=== PATIENT | male | born 1965 | race African-American/Black ===

== ENCOUNTER 2021-03-24 14:37 | Emergency (ER) | payer OTHER ==
[~2021-03-24] VITALS: Ht 172.7 cm; Wt 100.0 kg
[2021-03-24] MEDS ORDERED: SODIUM CHLORIDE 0.9% 1,000 ML IV ONE ×2 (15:00)
[2021-03-24] MEDS ORDERED: INSULIN REGULAR (HUMULIN R) 300UNITS/3ML VIAL IV ONE ×2 (15:00→15:45)
[2021-03-24 15:08] LABS: BASOPHILS % 0.5 % (0.0-2.0); EOSINOPHILS % 1.9 % (0.0-5.0); HEMATOCRIT. 50.6 % (42.0-52.0); HEMOGLOBIN. 15.4 g/dL (14.0-18.0); MEAN CORPUSCULAR HEMOGLOBIN 21.4 pg (28.0-32.0); MEAN CORPUSCULAR VOLUME 70.2 fL (80.0-94.0); MONOCYTES % 8.7 % (2.0-8.0); NEUTROPHILS % 66.9 % (40.0-76.0); PLATELET 184 x1000/uL (130-400); RED BLOOD CELL COUNT 7.21 mill/uL (4.7-6.1); RED CELL DISTRIBUTION WIDTH 16.1 % (11.6-14.6)
[2021-03-24 15:15] LABS: CHLORIDE 98 mEq/L (98-107)
[2021-03-24 15:25] LABS: BETA HYDROXYBUTYRATE 1.8 mMol/L (0.0-0.3)
[2021-03-24 18:29] LABS: CHLORIDE 108 mEq/L (98-107)
[2021-03-24 19:29] VITALS: BP 111/76
== END 2021-03-24 19:37 | disposition home or self-care (01) ==
LOC: ER 14:37
DX: E11.65 Type 2 diabetes mellitus with hyperglycemia (principal); I49.9 Cardiac arrhythmia, unspecified
CPT/HCPCS: 36415; 80048; 80053; 82010; 82962; 85025; 93005; 96361; 96374; 96376; 99284; J1815

== ENCOUNTER 2022-01-19 02:25 | Emergency (ER) | payer MEDICAID, OTHER ==
[~2022-01-19] VITALS: Ht 177.8 cm; Wt 80.0 kg
[2022-01-19] MEDS ORDERED: ASPIRIN 81MG TABLET PO ONE (02:45)
[2022-01-19] MEDS ORDERED: NITROGLYCERIN 0.4MG TABLET SL SL PRN (02:45)
[2022-01-19 03:09] LABS: BASOPHILS % 1.3 % (0.0-2.0); EOSINOPHILS % 3.2 % (0.0-5.0); HEMATOCRIT. 42.2 % (42.0-52.0); HEMOGLOBIN. 13.3 g/dL (14.0-18.0); LYMPHOCYTES % 27.2 % (20.0-50.0); MEAN CORPUSCULAR HEMOGLOBIN 21.4 pg (28.0-32.0); MEAN PLATELET VOLUME 8.8 fl (7.4-10.4); MONOCYTES % 9.2 % (2.0-8.0); NEUTROPHILS % 59.1 % (40.0-76.0); PLATELET 152 x1000/uL (130-400); RED BLOOD CELL COUNT 6.21 mill/uL (4.7-6.1); RED CELL DISTRIBUTION WIDTH 18.2 % (11.6-14.6)
[2022-01-19 03:15] LABS: CHLORIDE 99 mEq/L (98-107)
[2022-01-19 04:00] VITALS: BP 131/80
[2022-01-19 05:27] LABS: PLATELET ESTIMATE NORMAL
== END 2022-01-19 05:33 | disposition home or self-care (01) ==
LOC: ER 02:25
DX: R07.89 Other chest pain (principal); E11.9 Type 2 diabetes mellitus without complications
CPT/HCPCS: 36415; 71045; 80053; 83880; 84484; 85025; 93005; 99285